=== PATIENT | male | born 1930 | race Native Hawaiian/Other Pacific Islander ===

== ENCOUNTER 2017-02-13 04:35 | Emergency (ER) | payer OTHER ==
[~2017-02-13] VITALS: Ht 167.6 cm; Wt 72.6 kg
[2017-02-13] MEDS ORDERED: HYDR25TA60 PO (04:43)
[2017-02-13] MEDS ORDERED: LEVO0.0529 PO (04:44)
[2017-02-13] MEDS ORDERED: ELIQUIS2.5 MG OR (04:45)
[2017-02-13] MEDS ORDERED: NEXIUM40 M1 PO (04:45)
[2017-02-13] MEDS ORDERED: COZAAR25 MG PO (04:45)
[2017-02-13] MEDS ORDERED: DICL1GEL2 TOP (04:46)
[2017-02-13] MEDS ORDERED: TRAM50TA PO (04:47)
[2017-02-13] MEDS ORDERED: DOCU100C10 PO (04:47)
[2017-02-13] MEDS ORDERED: B-12500 MCG OR (04:48)
[2017-02-13 05:49] LABS: PARTIAL THROMBOPLASTIN TIME 25.3 SECONDS (24.5-33.6)
[2017-02-13 08:46] VITALS: BP 130/78; TEMP 97.2
== END 2017-02-13 08:47 ==
LOC: ED 04:35
DX: L76.32 Postprocedural hematoma of skin and subcutaneous tissue following other procedure (principal)
CPT/HCPCS: 36415; 85610; 85730; 99285; J1885

== ENCOUNTER 2018-11-02 17:10 | Outpatient (CLI) | payer OTHER ==
[~2018-11-02 17:10] MED LIST: B-12500 MCG OR; COZAAR25 MG PO; DICL1GEL2 TOP; DOCU100C10 PO; ELIQUIS2.5 MG OR; HYDR25TA60 PO; LEVO0.0529 PO; NEXIUM40 M1 PO; TRAM50TA PO
[2018-11-02 17:44] LABS: PLATELET COUNT 203 K/uL (142-355)
[2018-11-02 18:17] LABS: POTASSIUM 3.2 mmol/L (3.6-5.2)
== END 2018-11-02 21:05 | disposition home or self-care (01) ==
LOC: LABW 17:10
PROVIDERS: Internal Medicine Nephrology
DX: I10 Essential (primary) hypertension (principal); M10.9 Gout, unspecified; I48.91 Unspecified atrial fibrillation; Z87.442 Personal history of urinary calculi
CPT/HCPCS: 36415; 80053; 81000; 82306; 82570; 83970; 84100; 84155; 85027

== ENCOUNTER 2019-07-03 03:24 | Observation (INO) | payer OTHER ==
[~2019-07-03] VITALS: Ht 167.6 cm; Wt 70.9 kg
[2019-07-03 03:39] VITALS: BP 161/94; TEMP 98
[2019-07-03] MEDS ORDERED: DICL1GEL2 TOP (03:43)
[2019-07-03] MEDS ORDERED: EUTHYROX75 MCG PO (03:43)
[2019-07-03] MEDS ORDERED: LINZESS72 MCG PO (03:43)
[2019-07-03] MEDS ORDERED: CLOP75TA2 PO (03:43)
[2019-07-03] MEDS ORDERED: COLCRYS 0.6MG0.6 MG PO (03:44)
[2019-07-03 04:16] LABS: PLATELET COUNT 227 K/uL (142-355)
[2019-07-03 04:23] LABS: POTASSIUM 4.1 mmol/L (3.6-5.2)
[2019-07-03 07:12] VITALS: BP 129/81; TEMP 97; Ht 167.6 cm; Wt 70.9 kg
[2019-07-03 12:00] VITALS: BP 101/44; TEMP 97.3
[2019-07-03 16:00] VITALS: BP 124/78; TEMP 98.1
[2019-07-03 20:00] VITALS: BP 119/72; TEMP 97.3
[2019-07-04] VITALS: BP 115/75; TEMP 97.5
[2019-07-04 03:55] VITALS: BP 104/66; TEMP 97.8
[2019-07-04 08:00] VITALS: BP 94/55; TEMP 98.1
[2019-07-04 09:57] LABS: PLATELET COUNT 217 K/uL (142-355)
[2019-07-04 12:00] VITALS: BP 113/69; TEMP 97.6
[2019-07-04 16:00] VITALS: BP 123/71; TEMP 98.4
[2019-07-04 20:00] VITALS: BP 133/67; TEMP 97.6
[2019-07-05] VITALS: BP 95/60; TEMP 97.9
[2019-07-05 04:00] VITALS: BP 112/50; TEMP 98.1
[2019-07-05 08:00] VITALS: BP 111/66; TEMP 97.7
[2019-07-05 12:00] VITALS: BP 101/63; TEMP 98.1
== END 2019-07-05 15:10 | disposition home or self-care (01) ==
LOC: ED 03:24 → MED/SURG 05:06
PROVIDERS: Internal Medicine; ADMIT Family Medicine
DX: I73.89 Other specified peripheral vascular diseases (principal); L03.116 Cellulitis of left lower limb; I25.10 Atherosclerotic heart disease of native coronary artery without angina pectoris; E03.8 Other specified hypothyroidism; K21.9 Gastro-esophageal reflux disease without esophagitis; K59.09 Other constipation
CPT/HCPCS: 36415; 80053; 84550; 85027; 85379; 96365; 96366; 96367; 96374; 96375; 99220; 99284; G0378; J1885; J2175; J2550; J2930; J3490